=== PATIENT | female | born 1970 | race Hispanic/Latino ===

== ENCOUNTER 2023-03-09 17:27 | Emergency (ER) | payer OTHER ==
[~2023-03-09] VITALS: Ht 160 cm; Wt 104.3 kg
[2023-03-09 17:36] VITALS: O2SAT 98
[2023-03-09] MEDS ORDERED: FAMOTIDINE 20 MG TAB PO ONE (18:30)
[2023-03-09] MEDS ORDERED: PREDNISONE 20 MG TAB PO ONE ×2 (18:30→18:45)
[2023-03-09] MEDS ORDERED: PREDNISONE20 MG PO (18:40)
== END 2023-03-09 19:00 | disposition home or self-care (01) ==
LOC: FSED 17:35
DX: L23.89 Allergic contact dermatitis due to other agents (principal); E11.9 Type 2 diabetes mellitus without complications; K21.9 Gastro-esophageal reflux disease without esophagitis; I10 Essential (primary) hypertension; Z98.84 Bariatric surgery status
CPT/HCPCS: 99282; J7512